=== PATIENT | male | born 1990 | race Hispanic/Latino ===

== ENCOUNTER 2023-02-04 17:21 | Emergency (ER) | payer SELFPAY ==
[~2023-02-04] VITALS: Ht 165.1 cm; Wt 77.1 kg
[2023-02-04 17:31] VITALS: O2SAT 100
[2023-02-04] MEDS ORDERED: ANAPROX DS550 MG PO (17:48)
[2023-02-04] MEDS ORDERED: MEDROL4 M2 PO (17:49)
== END 2023-02-04 17:55 | disposition home or self-care (01) ==
LOC: ER 17:42
DX: G56.03 Carpal tunnel syndrome, bilateral upper limbs (principal); R20.0 Anesthesia of skin; F17.200 Nicotine dependence, unspecified, uncomplicated
CPT/HCPCS: 99282